=== PATIENT | male | born 1940 | race Caucasian/White ===

== ENCOUNTER 2018-08-16 15:26 | Emergency (ER) | payer OTHER ==
[~2018-08-16] VITALS: Ht 177.8 cm; Wt 101.8 kg
[2018-08-16 15:32] VITALS: Ht 177.8 cm; Wt 101.8 kg
[2018-08-16 15:59] LABS: BASOPHILS 0.1 % (0-2); EOSINOPHILS 1.6 % (0-7); HEMATOCRIT 37.4 % (42.0-54.0); HEMOGLOBIN 13.2 g/dL (13.5-17.5); IMMATURE GRANULOCYTES 0.4 % (0-5); LYMPHOCYTES 14.4 % (15-50); MCH 33.8 pg (26.0-34.0); MCHC 35.3 g/dL (31.0-37.0); MCV 95.7 fL (80.0-100.0); MEAN PLATELET VOLUME 10.1 fL (7.4-10.4); MONOCYTES 8.6 % (2-11); NEUTROPHILS 74.9 % (40-80); PLATELET COUNT 204 10x3/uL (130-400); RBC 3.91 10x6/uL (4.20-6.10); RDW 13.4 % (11.5-14.5); WBC 13.5 10x3/uL (4.8-10.8)
[2018-08-16 16:19] LABS: ALBUMIN 3.4 g/dL (3.4-5.0); ALKALINE PHOSPHATASE 107 U/L (46-116); ALT (SGPT) 28 U/L (10-68); BILIRUBIN - TOTAL 0.85 mg/dL (0.2-1.3); CALC OSMOLALITY 268 mosm/kg (275-300); CALCIUM 9.3 mg/dL (8.5-10.1); CARBON DIOXIDE 27.2 mmol/L (21.0-32.0); CHLORIDE - SERUM 99 mmol/L (98-107); CREATININE - SERUM 1.4 mg/dL (0.6-1.3); GLUCOSE 131 mg/dL (74-106); POTASSIUM - SERUM 4.3 mmol/L (3.5-5.1); PROTEIN - SERUM 7.1 g/dL (6.4-8.2); SODIUM 132 mmol/L (136-145); UREA NITROGEN 18 mg/dL (7-18); eGFR NON AFRICAN AMERICAN 52 mL/min (90-120)
[2018-08-16 16:31] LABS: CKMB 0.6 U/L (0.0-3.6); CREATINE KINASE 60 UL (21-232); THYROID STIMULATING HORMONE 2.62 uIU/mL (0.36-3.74)
[2018-08-16 16:33] LABS: TROPONIN-I < 0.017 ng/mL (0.000-0.060)
[2018-08-16 16:46] LABS: APTT 28.9 SECONDS (22.8-39.4); INR 1.11 (0.85-1.17); PROTIME 14.3 SECONDS (11.6-15.0)
[2018-08-16 17:33] LABS: APPEARANCE CLEAR (CLEAR); BILIRUBIN NEGATIVE (NEGATIVE); COLOR YELLOW (YELLOW); GLUCOSE NEGATIVE (NEGATIVE); KETONE NEGATIVE (NEGATIVE); NITRITE NEGATIVE (NEGATIVE); PROTEIN TRACE mg/dL (NEGATIVE); UROBILINOGEN NORMAL (NORMAL)
[2018-08-16 17:35] LABS: BACTERIA FEW /hpf (NONE SEEN); EPITHELIAL CELLS 0-5 /hpf (0-5); RED CELLS - URINE 0-5 /hpf (0-5); WHITE CELLS - URINE 0-5 /hpf (0-5)
[2018-08-16 17:39] LABS: UDS - AMPHET NEGATIVE QUAL (NEGATIVE); UDS - BARB NEGATIVE QUAL (NEGATIVE); UDS - BENZO NEGATIVE QUAL (NEGATIVE); UDS - COCAINE NEGATIVE QUAL (NEGATIVE); UDS - OPIATE NEGATIVE QUAL (NEGATIVE); UDS - PCP NEGATIVE QUAL (NEGATIVE); UDS - THC NEGATIVE QUAL (NEGATIVE)
[2018-08-16 20:00] VITALS: BP 122/74
== END 2018-08-16 23:37 | disposition other institution (70) ==
LOC: D.ER 15:26
PROVIDERS: Family Medicine
DX: I95.9 Hypotension, unspecified (principal); R41.82 Altered mental status, unspecified; R53.83 Other fatigue

== ENCOUNTER 2018-10-09 02:08 | Emergency (ER) | payer OTHER ==
[~2018-10-09] VITALS: Ht 177.8 cm; Wt 100.0 kg
[2018-10-09 02:14] VITALS: Ht 177.8 cm; Wt 100.0 kg
[2018-10-09] MEDS ORDERED: NORVASC10 MG PO (02:16)
[2018-10-09] MEDS ORDERED: LIPITOR80 MG PO (02:16)
[2018-10-09] MEDS ORDERED: ZYRTEC10 MG PO (02:16)
[2018-10-09] MEDS ORDERED: OPTIVE SENSITI1 EACH EACH EYE (02:16)
[2018-10-09] MEDS ORDERED: BAYER CHEWABLE81 MG PO (02:16)
[2018-10-09] MEDS ORDERED: PROSCAR5 MG PO (02:17)
[2018-10-09] MEDS ORDERED: FERROUS SULFAT325 MG PO (02:17)
[2018-10-09] MEDS ORDERED: VOLTAREN100 GM TOPICAL (02:17)
[2018-10-09] MEDS ORDERED: EUCERIN ORIGIN500 ML TP (02:17)
[2018-10-09] MEDS ORDERED: LISINOPRIL40 MG PO (02:18)
[2018-10-09] MEDS ORDERED: LIDODERM 5 %1 PATCH TRANSDERM (02:18)
[2018-10-09] MEDS ORDERED: ISOSORBIDE MONO30 M1 PO (02:18)
[2018-10-09] MEDS ORDERED: FUROSEMIDE20 MG PO (02:18)
[2018-10-09] MEDS ORDERED: LYRICA100 MG PO (02:19)
[2018-10-09] MEDS ORDERED: K-TAB10 MEQ PO (02:19)
[2018-10-09] MEDS ORDERED: TOPROL XL25 MG PO (02:19)
[2018-10-09] MEDS ORDERED: MULTI-DAY VITAM1 TAB PO (02:19)
[2018-10-09] MEDS ORDERED: ULTRAM50 MG PO (02:20)
[2018-10-09] MEDS ORDERED: FLOMAX0.4 MG PO (02:20)
[2018-10-09 02:59] LABS: BASOPHILS 0.3 % (0-2); EOSINOPHILS 4.6 % (0-7); HEMATOCRIT 36.6 % (42.0-54.0); HEMOGLOBIN 13.1 g/dL (13.5-17.5); MCH 33.2 pg (26.0-34.0); MCHC 35.8 g/dL (31.0-37.0); MCV 92.9 fL (80.0-100.0); MEAN PLATELET VOLUME 9.5 fL (7.4-10.4); MONOCYTES 10.2 % (2-11); NEUTROPHILS 69.9 % (40-80); RBC 3.94 10x6/uL (4.20-6.10); RDW 13.5 % (11.5-14.5); WBC 11.4 10x3/uL (4.8-10.8)
[2018-10-09 03:01] LABS: PLATELET COUNT 258 10x3/uL (130-400)
[2018-10-09 03:12] LABS: ALBUMIN 3.6 g/dL (3.4-5.0); ANION GAP 13.3 mmol/L (8-16); BILIRUBIN - TOTAL 0.56 mg/dL (0.2-1.3); C-REACTIVE PROTEIN 2.1 mg/dL (0.0-0.9); CALCIUM 9.1 mg/dL (8.5-10.1); CARBON DIOXIDE 26.1 mmol/L (21.0-32.0); CREATININE - SERUM 1.2 mg/dL (0.6-1.3); POTASSIUM - SERUM 4.4 mmol/L (3.5-5.1); PROTEIN - SERUM 7.1 g/dL (6.4-8.2)
[2018-10-09 04:03] LABS: ERYTHROCYTE SEDIMENTATION RATE 8 mm/hr (0-20)
[2018-10-09] MEDS ORDERED: STERAPRED DS 1010 MG PO (05:30)
[2018-10-09 06:24] VITALS: BP 130/67
== END 2018-10-09 06:25 | disposition home or self-care (01) ==
LOC: D.ER 02:08
PROVIDERS: Family Medicine
DX: M54.12 Radiculopathy, cervical region (principal); M25.522 Pain in left elbow

== ENCOUNTER → 2018-12-26 10:20 | Outpatient (CLI) | payer OTHER ==
[2018-10-09 02:14] VITALS: BMI 31.6
[~2018-12-26 10:20] MED LIST: BAYER CHEWABLE81 MG PO; EUCERIN ORIGIN500 ML TP; FERROUS SULFAT325 MG PO; FLOMAX0.4 MG PO; FUROSEMIDE20 MG PO; ISOSORBIDE MONO30 M1 PO; K-TAB10 MEQ PO; LIDODERM 5 %1 PATCH TRANSDERM; LIPITOR80 MG PO; LISINOPRIL40 MG PO; LYRICA100 MG PO; MULTI-DAY VITAM1 TAB PO; NORVASC10 MG PO; OPTIVE SENSITI1 EACH EACH EYE; PROSCAR5 MG PO; STERAPRED DS 1010 MG PO; TOPROL XL25 MG PO; ULTRAM50 MG PO; VOLTAREN100 GM TOPICAL; ZYRTEC10 MG PO
== END | disposition home or self-care (01) ==
LOC: D.MRI 12-19 13:00
PROVIDERS: ATTEND Nurse Practitioner
DX: M25.522 Pain in left elbow (principal)